=== PATIENT | female | born 1970 | race African-American/Black ===

== ENCOUNTER 2016-08-20 09:57 | Emergency (ER) | payer SELFPAY ==
[~2016-08-20] VITALS: Ht 175.3 cm; Wt 149.0 kg
[~2016-08-20 09:57] MED LIST: GRIS1TAB PO; HYDR25TA5 PO; KETOC2%T TOPICAL; LISI40TA PO; PRED-503 PO; ZANT150T2 PO
[2016-08-20 09:58] VITALS: BP 127/77; PULSE 83; RESP 16; TEMP 98.3; O2SAT 98
--- NOTE | 2016-08-20 10:59 | PD ---
HPI Chief Complaint: Injury Time Seen by Provider: 10:54 Travel History International Travel<30 days: No Contact w/Intl Traveler<30days: No Traveled to known affect area: No History of Present Illness HPI 46-year-old Afro-[place] female presents the emergency department with worsening left MIP joint pain. Patient states she's had it off and on for the past 3 weeks. Patient has been using Naprosyn with mild relief occasionally. Patient states it's gotten much worse in the last 3 days, and to the point where she is having difficulty ambulating. Patient has no history of injury to the area, no documented history of gout prior to this. Pain is currently an 8 out of 10. She is allergic to penicillin and Griseofulfin. PFSH Past Medical History Cancer: No Cardiovascular Problems: Yes (HTN) Diabetes: No Diminished Hearing: No Genitourinary: No Hypertension: Yes Implanted Vascular Access Dvce: No Musculoskeletal: No Neurologic: No Psychiatric: No Respiratory: No Immunizations Current: No Thyroid Disease: No ?: Unknown : 4 Para: 4 Tubal Ligation: Yes Past Surgical History Abdominal Surgery: Yes ( RESECTION OF TUMOR IN STOMACH ) Gynecologic Surgery: Yes (TUBAL LIGATION/HYSTERECTOMY) Hysterectomy: Yes Social History Alcohol Use: No Tobacco Use: No Substance Use: No Allergies-Medications (Allergen,Severity, Reaction): Coded Allergies: Penicillin (Verified Allergy, Severe, 03/09/16) Griseofulvin (Verified Allergy, Intermediate, Hives, 03/09/16) Reported Meds & Prescriptions Reported Meds & Active Scripts Active Zantac (Ranitidine HCl) 150 Mg Tab 150 Mg PO BID 7 Days Deltasone (Prednisone) 20 Mg Tab 40 Mg PO DAILY 4 Days START 03/10/2016 Nizoral Topical Shampoo (Ketoconazole) 2% Sham 1 Applic TOPICAL DAILY Apply to scalp Griseofulvin Microsize 500 Mg Tab 500 Mg PO DAILY 14 Days Reported Hydrochlorothiazide 25 Mg Tab 25 Mg PO DAILY Lisinopril 40 Mg Tab 40 Mg PO DAILY Review of Systems Except as stated in HPI: all other systems reviewed are Neg General / Constitutional: No: Fever Eyes: No: Visual changes HENT: No: Headaches Cardiovascular: No: Chest Pain or Discomfort Respiratory: No: Shortness of Breath Gastrointestinal: No: Abdominal Pain Genitourinary: No: Dysuria Musculoskeletal: Positive: Arthralgias, Limited ROM, Pain Skin: No Rash Neurologic: No: Weakness Psychiatric: No: Depression Endocrine: No: Polydipsia Hematologic/Lymphatic: No: Easy Bruising Physical Exam Narrative GENERAL: Obese 46-year-old child in moderate distress. SKIN: Warm and dry. Normal color. Normal turgor. Patient has warmth and erythema and swelling over the left MIP joint. HEAD: Atraumatic. Normocephalic. EYES: Pupils equal and round. No scleral icterus. No injection or drainage. ENT: No nasal bleeding or discharge. Mucous membranes pink and moist. Pharynx is normal. NECK: Trachea midline. Supple nontender. CARDIOVASCULAR: Regular rate and rhythm. RESPIRATORY: No accessory muscle use. Clear to auscultation. Breath sounds equal bilaterally. MUSCULOSKELETAL: Extremities without clubbing, cyanosis, or edema. No obvious deformities. Patient has erythema, swelling, and significant pain with any type of motion or palpation of the left MIP joint. No obvious signs of cellulitis. This appears consistent with gouty arthritis. NEUROLOGICAL: Awake and alert. No obvious cranial nerve deficits. Motor grossly within normal limits. Five out of 5 muscle strength in the arms and legs. Normal speech. PSYCHIATRIC: Appropriate mood and affect; insight and judgment normal. Data Data Last Documented VS Vital Signs Date Time Temp Pulse Resp B/P Pulse Ox O2 Delivery O2 Flow Rate FiO2 08/20/16 09:58 98.3 83 16 127/77 98 Orders Ketorolac Inj (Toradol Inj) (08/20/16 11:00) Dexamethasone Inj (Decadron Inj) (08/20/16 11:00) [facility] [place] Medical Decision Making Medical Screen Exam Complete: Yes Emergency Medical Condition: Yes Medical Record Reviewed: Yes Differential Diagnosis Left foot pain. Left great toe pain. Gouty arthritis. Narrative Course Patient is given Toradol 60 mg IM. Patient is given Decadron 10 mg IM. Patient will be continued on prednisone 20 mg twice a day 7 days. Patient can take tramadol 50 mg one every 6 hours when necessary pain. #20. Patient is to follow-up with a local primary care physician for further evaluation and treatment as discussed. Patient can return to the emergency Department with worsening symptoms as necessary. Diagnosis Primary Impression: Gout attack Qualified Code: M10.9 - Acute gout involving toe of left foot, unspecified cause Referrals: Primary Care Physician Patient Instructions: General Instructions, Gout (ED), Low Purine Diet (ED) Additional Instructions: Patient is given Toradol 60 mg IM. Patient is given Decadron 10 mg IM. Patient will be continued on prednisone 20 mg twice a day 7 days. Patient can take tramadol 50 mg one every 6 hours when necessary pain. #20. Patient is to follow-up with a local primary care physician for further evaluation and treatment as discussed. Patient can return to the emergency Department with worsening symptoms as necessary. Med/Other Pt SpecificInfo: Prescription(s) given Disposition: 01 DISCHARGE HOME Condition: Stable Cuate Camacho Aug 20, 2016 10:59
[2016-08-20] MEDS ORDERED: TRAM50TA PO (11:00)
[2016-08-20] MEDS ORDERED: DEXAMETHASONE SOD PHOS 20 MG/5 ML VIAL IM ONE (11:00)
[2016-08-20] MEDS ORDERED: PRED20 PO (11:00)
[2016-08-20] MEDS ORDERED: KETOROLAC TROMETHAMINE 60 MG/2 ML (IM) VIAL IM ONE (11:00)
[2016-08-20] MEDS ORDERED: LISI40TA PO (11:14)
[2016-08-20] MEDS ORDERED: HYDR25TA5 PO (11:14)
== END 2016-08-20 11:44 | disposition home or self-care (01) ==
LOC: NEPK 09:57
DX: M10.9 Gout, unspecified (principal); I10 Essential (primary) hypertension; Z86.79 Personal history of other diseases of the circulatory system
CPT/HCPCS: 96372; 99284; J1100; J1885

== ENCOUNTER 2016-11-10 08:34 | Emergency (ER) | payer SELFPAY ==
[~2016-11-10] VITALS: Ht 175.3 cm; Wt 150.0 kg
[~2016-11-10 08:34] MED LIST changes: -GRIS1TAB PO; -KETOC2%T TOPICAL; -PRED-503 PO; +PRED20 PO; +TRAM50TA PO; -ZANT150T2 PO
[2016-11-10 08:36] VITALS: BP_SYST 119; BP_SYST 19; BP_DIAS 57; PULSE 65; RESP 16; TEMP 98.5; O2SAT 97
--- NOTE | 2016-11-10 09:02 | PD ---
HPI Chief Complaint: Pain: Acute or Chronic Time Seen by Provider: 08:51 Travel History International Travel<30 days: No Contact w/Intl Traveler<30days: No Traveled to known affect area: No History of Present Illness HPI 46-year-old female presents emergency Department with complaint of left knee pain and left great toe pain since August when she was diagnosed with gout. She is requesting a school release because she has failed and had a drop out of some classes due to her pain. She says she is behind in her studies and [employer] [facility] is requiring a doctor's note to excuse her from school. Denies injury. Says her knee pain is from using her new stairstepper and having to go up and down 2 flights of stairs to her apartment. She says she was diagnosed with gout back in August and she thinks her toe pain is a flareup of the gout. Denies paresthesias, loss of sensation, decreased range of motion , decreased strength to the affected extremity. Denies fever, vomiting. Has been using hvvl-owj-sisnaes antigout treatments since August for symptom management. Is ambulatory on the affected extremity. History Past Medical Histgory Hx Cancer: No Social History Alcohol Use: No Tobacco Use: No Allergies-Medications (Allergen,Severity, Reaction): Coded Allergies: penicillin G (Unverified Allergy, Severe, 11/10/16) griseofulvin (Unverified Allergy, Intermediate, Hives, 11/10/16) Reported Meds & Prescriptions Reported Meds & Active Scripts Active Hydrochlorothiazide 25 Mg Tab 25 Mg PO DAILY Lisinopril 40 Mg Tab 40 Mg PO DAILY Tramadol (Tramadol HCl) 50 Mg Tab 50 Mg PO Q6H PRN Prednisone 20 Mg Tab 20 Mg PO BID Review of Systems Except as stated in HPI: all other systems reviewed are Neg Physical Exam Narrative GENERAL: Well-nourished, well-developed female patient, in no acute distress SKIN: Warm and dry. HEAD: Atraumatic. Normocephalic. EYES: Pupils equal and round. No scleral icterus. No injection or drainage. ENT: Mucosa pink and moist. Airway patent. NECK: Trachea midline. CARDIOVASCULAR: Regular rate. RESPIRATORY: No accessory muscle use. GASTROINTESTINAL: Obese. MUSCULOSKELETAL: Left knee is not edematous without erythema or ecchymosis; full range of motion; without tenderness on palpation; ambulatory on the affected extremity. Left foot/great toe area without erythema, edema; with tenderness on palpation; sensory intact silicon 2+ radial pulse. No signs of gout exacerbation. No obvious deformities. No clubbing. No cyanosis. No edema. NEUROLOGICAL: Awake and alert. Oriented 3. No obvious cranial nerve deficits. Motor grossly within normal limits. Normal speech. PSYCHIATRIC: Appropriate mood and affect; insight and judgment normal. Data Data Last Documented VS Vital Signs Date Time Temp Pulse Resp B/P (MAP) Pulse Ox O2 Delivery O2 Flow Rate FiO2 11/10/16 08:36 98.5 65 16 119/57 (77) 97 Room Air MDM Medical Screen Exam Complete: Yes Emergency Medical Condition: No Differential Diagnosis Medical clearance Narrative Course 46 year old female with left knee pain and left great toe pain since August after she was diagnosed with gout. She has missed a great amount of school and has failed classes and is requesting a medical release note to return back to school for [employer]. I sees no signs of gout exacerbation to the left foot. The patient is ambulatory on her left lower extremity and the knee is with full range of motion, no tenderness on palpation, and without erythema or edema. She denies new or recent injury. I do not suspect fracture or dislocation until imaging is not necessary at this time. Vital signs are stable and the patient is stable for outpatient follow-up and treatment. The patient has no urgent or emergent medical complaints. There is no emergent or urgent medical need at this time. I instructed the patient to follow up with their primary care provider. A medical screening exam was performed: At the time of evaluation the presenting medical condition was determined not to be of an emergent nature. The patient was given the option of receiving additional care, but declined. Patient was given options for additional community resources from which to obtain care. The Patient Has Been advised to seek medical attention for their presenting complaint. The patient has been advised to return to the ER at any time if an emergent condition develops. Primary Impression: Encounter for medical screening examination Condition: Stable Heather Iniguez Nov 10, 2016 09:02
== END 2016-11-10 08:55 | disposition left against medical advice (07) ==
LOC: NEPK 08:34
DX: Z02.0 Encounter for examination for admission to educational institution (principal); M10.9 Gout, unspecified
CPT/HCPCS: 99281

== ENCOUNTER 2017-01-20 09:29 | Emergency (ER) | payer SELFPAY ==
[~2017-01-20] VITALS: Ht 175.3 cm; Wt 150.0 kg
[2017-01-20 09:30] VITALS: BP 117/64; PULSE 62; RESP 18; TEMP 98.5; O2SAT 100
[2017-01-20] MEDS ORDERED: DICL75TA PO (10:02)
[2017-01-20] MEDS ORDERED: INDO50CA PO (10:20)
--- NOTE | 2017-01-20 10:27 | PD ---
HPI Chief Complaint: Pain: Acute or Chronic Time Seen by Provider: 10:19 Travel History International Travel<30 days: No Contact w/Intl Traveler<30days: No Traveled to known affect area: No History of Present Illness HPI 47-year-old female presents for evaluation of right great toe pain. Symptoms started 4-5 days ago. She reports a throbbing pain in her right right toe primarily localized to the first MTP joint. The pain is worse with range of motion. She denies any injuries. She reports a history of gouty arthritis and this feels the same. The patient was seen for evaluation of this on January 17. She was given injections of Toradol and Decadron which improved her symptoms. She reports that yesterday she returned to work and she had to stand and walk for most of the day and her pain became exacerbated and this prompted reevaluation. She uses diclofenac with mild relief in her pain. Denies any fevers, chills. She has no other complaints at this time. 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 Hydrochlorothiazide 25 Mg Tab 25 Mg PO DAILY Lisinopril 40 Mg Tab 40 Mg PO DAILY Reported Diclofenac Sodium DR (Diclofenac Sodium) 75 Mg Tabdr 75 Mg PO BID Review of Systems General / Constitutional: No: Fever, Chills Musculoskeletal: Positive: Pain, Other Skin: Positive Other (positive for redness and soft tissue swelling in the right great toe.) Physical Exam Narrative GENERAL: Well-developed well-nourished female in no acute distress SKIN: Warm and dry. HEAD: Atraumatic. Normocephalic. EYES: Pupils equal and round. No scleral icterus. No injection or drainage. ENT: No nasal bleeding or discharge. Mucous membranes pink and moist. NECK: Trachea midline. No JVD. CARDIOVASCULAR: Regular rate and rhythm. No murmur appreciated. RESPIRATORY: No accessory muscle use. Clear to auscultation. Breath sounds equal bilaterally. MUSCULOSKELETAL: Right great toe MTP joint is painful with passive manipulation and erythematous and tender to palpation. No puncture wounds, no induration of the skin or fluctuance of the skin. NEUROLOGICAL: Awake and alert. No obvious cranial nerve deficits. Motor grossly within normal limits. Normal speech. Data Data Last Documented VS Vital Signs Date Time Temp Pulse Resp B/P (MAP) Pulse Ox O2 Delivery O2 Flow Rate FiO2 01/20/17 09:30 98.5 62 18 117/64 (81) 100 Room Air Orders Orders Ketorolac Inj (Toradol Inj) (01/20/17 10:30) [facility] Medical Decision Making Medical Screen Exam Complete: Yes Emergency Medical Condition: Yes Medical Record Reviewed: Yes Differential Diagnosis Gouty arthritis, septic arthritis, cellulitis, toe sprain, toe fracture Narrative Course Her history and examination are consistent with podagra/gouty arthritis of the right great toe. The patient is requesting Toradol injection. She will be discharged with prescription for indomethacin to use in place of diclofenac. Diagnosis Primary Impression: Acute gouty arthritis Departure Forms: Tests/Procedures, Work Release Enter return to work date: Jan 22, 2017 Additional Instructions: Quit taking diclofenac. Take indomethacin with meals. Rest. Follow-up with primary care physician and return for any emergent medical conditions. Med/Other Pt SpecificInfo: Prescription(s) given Scripts Indomethacin (Indomethacin) 50 Mg Cap 50 MG PO TID for 5 Days, CAP 0 Refills Take with food, milk, or antacids to decrease stomach adverse effects. Prov: Phillip Tineo MD 01/20/17 Disposition: 01 DISCHARGE HOME Condition: Stable Elias Díaz Jan 20, 2017 10:27
[2017-01-20] MEDS ORDERED: KETOROLAC TROMETHAMINE 60 MG/2 ML (IM) VIAL IM ONE (10:30)
== END 2017-01-20 10:57 | disposition home or self-care (01) ==
LOC: NEPK 09:29
DX: M10.9 Gout, unspecified (principal); I10 Essential (primary) hypertension; Z88.0 Allergy status to penicillin; Z88.8 Allergy status to other drugs, medicaments and biological substances; Z79.899 Other long term (current) drug therapy
CPT/HCPCS: 96372; 99284; J1885

== ENCOUNTER 2017-05-18 09:50 | Emergency (ER) | payer BC ==
[~2017-05-18] VITALS: Ht 175.3 cm; Wt 140.0 kg
[~2017-05-18 09:50] MED LIST changes: +DICL75TA PO; +INDO50CA PO; -PRED20 PO; -TRAM50TA PO
[2017-05-18 10:01] VITALS: BP 118/64; PULSE 71; RESP 17; TEMP 98.3; O2SAT 100
[2017-05-18] MEDS ORDERED: LORA1CHW2 CHEW (10:08)
[2017-05-18] MEDS ORDERED: FLUT50SP EACH NARE (10:39)
[2017-05-18] MEDS ORDERED: DOXY100C PO (10:39)
--- NOTE | 2017-05-18 10:45 | PD ---
HPI Chief Complaint: ENT Complaint Time Seen by Provider: 10:30 Travel History International Travel<30 days: No Contact w/Intl Traveler<30days: No History of Present Illness HPI 47-year-old female presents to the emergency room for evaluation of nasal congestion, significant rhinorrhea, mild cough, and sore throat for the past 2 weeks. Patient states it started off as allergies but seems to be worsening. She has tried multiple brnj-jym-xdyewun medications including TheraFlu, Mucinex , holistic treatments, steam, and different allergy medications without any relief in symptoms. She reports a mild sinus headache yesterday. States she gets it every year around this time but it is never been this bad. She denies fever, chills, nausea, vomiting. 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 ) Gynecologic Surgery: Yes (TUBAL LIGATION/HYSTERECTOMY) Hysterectomy: Yes Social History Alcohol Use: No Tobacco Use: No Substance Use: No Allergies-Medications (Allergen,Severity, Reaction): Coded Allergies: penicillin G (Unverified Allergy, Severe, 05/18/17) griseofulvin (Unverified Allergy, Intermediate, Hives, 05/18/17) Reported Meds & Prescriptions Reported Meds & Active Scripts Active Fluticasone Nasal Williamson 50 Mcg/Act Naspr 100 Mcg EACH NARE BID 50 mcg/spray Doxycycline Hyclate 100 Mg Cap 100 Mg PO BID 7 Days Hydrochlorothiazide 25 Mg Tab 25 Mg PO DAILY Lisinopril 40 Mg Tab 40 Mg PO DAILY Reported Claritin (Loratadine) 5 Mg Chew 5 Mg CHEW DAILY Review of Systems Except as stated in HPI: all other systems reviewed are Neg Physical Exam Narrative GENERAL: Well-nourished, well-developed female no acute distress. Afebrile. Ambulatory. SKIN: Focused skin assessment warm/dry. HEAD: Normocephalic. Mild to moderate ethmoid tenderness. EYES: No scleral icterus. No injection or drainage. ENT: Mucosa pink and moist. No erythema or exudates. No uvular edema. No uvular , palatal, or tonsillar deviation. Airway patent. Nasal turbinates appear normal without nasal blood, purulent drainage or septal hematoma. Nasal turbinates have significant swelling. EARS: Bilateral pinnae and external canals appear within normal limits. Bilateral tympanic membranes without erythema, dullness or perforation. NECK: Supple, trachea midline. No JVD or lymphadenopathy. CARDIOVASCULAR: Regular rate and rhythm without murmurs, gallops, or rubs. RESPIRATORY: Breath sounds equal bilaterally. No accessory muscle use. No crackles, rales, wheezes, or rhonchi. Data Data Last Documented VS Vital Signs Date Time Temp Pulse Resp B/P (MAP) Pulse Ox O2 Delivery O2 Flow Rate FiO2 05/18/17 10:01 98.3 71 17 118/64 (82) 100 MDM Medical Decision Making Medical Screen Exam Complete: Yes Emergency Medical Condition: Yes Medical Record Reviewed: Yes Differential Diagnosis Sinusitis, allergies, upper respiratory infection, flu, pneumonia Narrative Course 47-year-old female presents to the emergency room for evaluation of sinus infection for the past 2 weeks. Patient is afebrile and well-appearing in the emergency room. Physical exam is essentially unremarkable. She has significant swelling of the turbinates with mild mucus. Given duration and severity of symptoms, she will be treated for sinusitis with doxycycline and fluticasone. Told to follow-up with her primary care physician if symptoms persist for outpatient management of allergies. Told to return for worsening symptoms. She understands and agrees to plan. Diagnosis Primary Impression: Sinusitis, acute ethmoidal Qualified Codes: J01.20 - Acute ethmoidal sinusitis, unspecified Referrals: Primary Care Physician Patient Instructions: General Instructions Departure Forms: Tests/Procedures Additional Instructions: Rest and drink plenty of fluids. Doxycycline as directed, until gone. This medication will make you burn in the sun. Fluticasone as directed for 1 month. Follow-up with a primary care physician. Return to the emergency room for worsening symptoms. Med/Other Pt SpecificInfo: Prescription(s) given Scripts Fluticasone Nasal Williamson (Fluticasone Nasal Williamson) 50 Mcg/Act Naspr 100 MCG EACH NARE BID for Allergy Management, #1 BOTTLE 0 Refills 50 mcg/spray Prov: Ben Heaton MD 05/18/17 Doxycycline Hyclate (Doxycycline Hyclate) 100 Mg Cap 100 MG PO BID for Infection for 7 Days, #14 CAP 0 Refills Prov: Ben Heaton MD 05/18/17 Disposition: 01 DISCHARGE HOME Condition: Stable Kathia Carrera May 18, 2017 10:45
== END 2017-05-18 11:22 | disposition home or self-care (01) ==
LOC: NEPK 09:50
DX: J01.20 Acute ethmoidal sinusitis, unspecified (principal); I10 Essential (primary) hypertension; Z79.899 Other long term (current) drug therapy; Z88.0 Allergy status to penicillin; Z88.8 Allergy status to other drugs, medicaments and biological substances
CPT/HCPCS: 99283